=== PATIENT | male | born 1945 | race Caucasian/White ===

== ENCOUNTER 2020-04-16 18:10 | Inpatient (IN) | payer OTHER, BC ==
[~2020-04-16] VITALS: Ht 177.8 cm; Wt 93.9 kg
--- NOTE | ~2020-04-16 | EKG ---
[facility] [place] [address] ELECTROCARDIOGRAM REPORT Name: ROSALES ENRIQUEZ Marc Room #: 201-P ADM IN M.R.#: [id number] Admission: 04/16/20 Attend Phys: Joseluis Riggs Discharge: Date of : 49 Report #: [id number] THIS REPORT FOR: cc: JENNY - [place] family physician/PCP JENNY - No family physician/PCP Mariposa Monge MD ~ THIS REPORT FOR: //name// [facility] Test Date: 2020-04-16 Test Time: 21:54:43 Pat Name: ROSALES ENRIQUEZ Department: Room: Gender: Web Operations Lead: [facility] : 1945 Requested By: Divya Cadet Order Number: [id number] MD: Measurements Intervals [place] Rate: 82 P: -24 RI: 104 QRS: 78 QRSD: 79 T: 263 QT: 382 QTc: 446 Interpretive Statements Sinus rhythm Short RI interval Low voltage, precordial leads Borderline repolarization abnormality Compared to ECG 03/10/1991 11:41:00 Short RI interval now present Low QRS voltage now present Sinus bradycardia no longer present [email or web address] By: 2154 [id number] [place], [place] /EPI
--- NOTE | ~2020-04-16 | HC ---
[facility] [place] [address] CONSULTATION Name: ROSALES ENRIQUEZ Room #: 205-P [facility] IN M.R.#: [id number] Admission: 04/16/20 Attend Phys: Joseluis Riggs Discharge: Date of : 49 Report #: [id number] THIS REPORT FOR: cc: JENNY - No family physician/PCP JENNY - No family physician/PCP Alli Burnham DO ~ CC: [facility] physician/PCP Joseluis Riggs PALLIATIVE CARE CONSULTATION REQUESTING PHYSICIAN: Dr. Lynn. CHIEF COMPLAINT: Acute hypoxic respiratory failure. HISTORY OF PRESENT ILLNESS: The patient is a 75-year-old male who presented after having an NSTEMI. He has subsequently had catheterization with stenting to the proximal LAD and was noted to have acute systolic heart failure. He had extensive disease process ongoing and subsequently required ventilation, post-catheterization. He was extubated and subsequently on nasal cannula, however, has had significant encephalopathy since this time. There has been discussion with regards to long-term prognosis, which appears to be poor. White count requested do not resuscitate and was agreeable to hospice evaluation. Unfortunately, the patient had not prior qualified for inpatient hospice admission. Over the last 24 hours, the patient has received Haldol due to his encephalopathy x 1 IV. In addition, he has had some episodes of tachypnea, which has been noted by nursing staff. On my questioning today, the patient is significantly confused, does not have any kind of ability to recognize what I am saying to him and/or he may be having some difficulty with expression. Essentially, his expression is of nonsensical language at this time. PAST MEDICAL HISTORY: Acute systolic congestive heart failure; coronary artery disease, status post stenting; hypoxic respiratory failure and delirium. PAST SURGICAL HISTORY: Recent heart catheterization with stenting as noted per HPI. SOCIAL HISTORY: I have spoken with the patient's niece today who is a nurse. In addition, the patient's spouse is also responsible for decision making. Case management has been in discussion with her. FAMILY HISTORY: Diabetes and heart disease. CODE STATUS: Currently DNR. ALLERGIES: AMOXICILLIN and CHANTIX. [facility] [address] [place] [address] CONSULTATION Name: ROSALES ENRIQUEZ Room #: 205-P [facility] IN M.R.#: [id number] Admission: 04/16/20 Attend Phys: Joseluis Riggs Discharge: Date of : 49 Report #: [id number] REVIEW OF SYSTEMS: Unable to obtain due to present medical condition. PHYSICAL EXAMINATION: VITAL SIGNS: Today's vitals include temp 36.6, pulse 86, respirations 20, blood pressure 113/59 and 95% on room air. GENERAL: The patient at least is alert to verbal stimuli. He does not appear in significant distress. He has mild distress with some tachypnea. He does appear to have poor attention. HEENT: No scleral icterus. No conjunctival injection. Pupils appear to be equally round. CARDIOVASCULAR: Not currently tachycardic. He has diffuse edema noted. RESPIRATORY: He appears to have diffuse rales. He has some tachypnea on my exam today. ABDOMEN: Nondistended. Diminished bowel sounds are noted. EXTREMITIES: Again, diffusely weak. Diffuse edema noted. PSYCHIATRIC: Unable to assess his mood at this time. His attention level is significantly altered. LABORATORY DATA: These include most recent sodium 150, creatinine 0.8. ASSESSMENT AND PLAN: 1. Acute hypoxic respiratory failure. At this point in time, the patient appears to have pulmonary edema secondary to acute systolic heart failure. This has been discussed with family. They desire hospice care. I have discussed with the [facility] intake at this point in time unless he were to be private pay. We do not feel like they are going to accept him. I did discuss that we could do inpatient palliative type care until such point that he may have further decline or is stable enough for discharge. I would like to stop his antibiotics at this point and start some palliative care medications. If again he has further decline prior to discharge, then we may consider hospice house again; however, if not, we will need further arrangements. We will follow up with family tomorrow. 2. Acute systolic heart failure. Again, this is overall contributing to his decline. I do feel that we should continue diuresis despite his hypernatremia due to his overall condition. 3. Hypernatremia. Again, we will continue diuresis to attempt to reduce his overall suffering. 4. Delirium, again significantly contributing to his overall prognosis. No desire to continue significant treatments, but rather switch to hospice type therapy. Again, thank you very much for the consultation. We will follow up tomorrow. By: [id number] Alli Burnham DO /nt
[2020-04-16 19:30] VITALS: BP 129/73
--- NOTE | 2020-04-16 20:00 | NUR ---
PT CAME FROM [facility] DIRECT ADMIT FOR CHEST PAIN. ORDERES OBTAINED FROM NEREYDA. REMAINS ON HEPARIN DRIP FOR CARDIAC PROTOCAL. WAS ON IT FROM [facility] AND CONTINUED HERE FOR THERAPY. LUNGS ARE CLEAR. ON 2 LITERS O2 NASAL CANULA. RATES PAIN A 1 FEELS PRESSURE IN CHEST. ANXIOUS WTIH HOSPITALIZATION AT THIS TIME. PLAN OF CARE DISCUSSED WITH CHEST PAIN AND INTERVENTIONS AT THIS TIME. CALL LIGHT WITHIN REACH IF NEEDS ASSISTANCE. LABS AND EKG DONE. AND WILL OBTAIN IN AM IN ADDITION TOO
[2020-04-16 20:15] LABS: HEMATOCRIT 45.3 % (42.0-52.0); HEMOGLOBIN 15.6 gm/dL (14.0-18.0); MCH 33.9 pg (26.0-34.0); MCHC 34.5 g/dL (28.0-37.0); MCV 98.1 fL (80.0-100.0); RBC 4.62 mil/uL (4.50-6.00); WBC 11.1 thou/uL (4.0-11.0)
[2020-04-16 20:28] LABS: PROTIME 10.7 Seconds (9.3-11.4)
[2020-04-16 20:34] LABS: CHOLESTEROL 205 mg/dL (<200); HDL CHOLESTEROL 32 mg/dL (>40); LDL CHOLESTEROL 129 mg/dL (<100); TC:HDL 6.4 Ratio (Not establshd); TRIGLYCERIDE 224 mg/dL (<150); VLDL 45 mg/dL (<40)
[2020-04-16] MEDS ORDERED: NEURONTIN 300M300 M2 PO (21:07)
[2020-04-16] MEDS ORDERED: HYDROCHLOROTHIA25 M2 PO (21:09)
[2020-04-16] MEDS ORDERED: METRONIDAZOLE500 M4 PO (21:10)
[2020-04-16] MEDS ORDERED: METFORMIN HCL500 M3 PO (21:12)
[2020-04-16] MEDS ORDERED: TRELEGY ELLIPT1 EACH IH (21:13)
[2020-04-16] MEDS ORDERED: LANTUS SUBQ (21:15)
[2020-04-17] VITALS (36 sets, daily range): BP systolic 86–131; BP diastolic 34–75
--- NOTE | 2020-04-17 03:52 | NUR ---
PT COMPLAINING OF CHEST PAIN AND ANXIOUS. RATES 7 UNCOMFORTABLE. FORMER SMOKER SOB. SITING PT UP IN TRIPOD POSITION FOR BREATHING WITH SMOKING HISTORY. TAKING SHALLOW BREATHS. OXYGEN TURNED UP TO 4LITERS NASAL CANULA. 3 NITRO GIVEN AND A DOSE OF MORPHINE IVP FOR DISCOMFORT AFTER INTERVENTIONS PAIN A 2 NOW HE REPORTS. COVID SWAB DONE AND SENT. PT REPORTS A FAMILY MEMBER HAD COVID 19 BUT HE HASNT BEEN AROUND THEM. INSTRUCTED PT STANDARD TESTING PRIOR TO PROCEDURES. NOTIFIED RT FOR BREATHING TREATMENT AT THIS TIME TO HELP PT. RT AT BEDSIDE TO ASSSIT. CALL LIGHT WITHIN REACH IF NEEDS ASSSITANCE
[2020-04-17 05:46] LABS: HEMATOCRIT 43.7 % (42.0-52.0); HEMOGLOBIN 14.9 gm/dL (14.0-18.0); MCH 34.6 pg (26.0-34.0); MCHC 34.1 g/dL (28.0-37.0); MCV 101.5 fL (80.0-100.0); RBC 4.31 mil/uL (4.50-6.00); WBC 14.3 thou/uL (4.0-11.0)
[2020-04-17 05:59] LABS: CALCIUM 9.2 mg/dL (8.5-10.1); CREATININE 1.1 mg/dL (0.7-1.3); MAGNESIUM 1.5 mg/dL (1.8-2.4); POTASSIUM 3.7 mmol/L (3.5-5.1)
--- NOTE | 2020-04-17 06:40 | NUR ---
SPOKE WITH NEREYDA IN REGARDS TO PT'S INCREASING CHEST PAIN. AND SOB. PT REPORTS HE JUST STOP SMOKING YESTERDAY. 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 STAT CHEST X RAY SOB. SINCE FAMILY MEMBER HE IS QUESTIONING ENHANCE ISOLATION AT THIS TIME. MEDS GIVEN ORDERED PER NEREYDA. AND WILL CONTINUE ONGOING NURSING CARE.
--- NOTE | 2020-04-17 08:02 | NUR ---
RECIEVED REPORT FROM NOC SHIFT RN, UPON INITAL ASSESMENT PT SLIGHTLY CONFUSED. STANDING AT SIDE OF BED, PULLING EKG LEADS AND GOWN OFF. PLACED BACK ON MONITOR AND SETTLED IN BED WITH ALARM ON. IMMEDIATELY AFTER TRAINING LEAD RN AT BEDSIDE TO TAKE PATIENT FOR CARDIDAC CATH. PLAN FOR PATIENT TO TRANSFER TO 3W POST PROCEDURE.
[2020-04-17 10:35] LABS: BE(vivo) -1.4 mmol/L (-2 to +3); HCO3 22.7 mmol/L (22.0-26.0); PCO2 36.7 mmHg (35.0-45.0); PO2 230.9 mmHg (80.0-100.0); pH 7.409 (7.360-7.450); sO2 99.5 % (92.0-98.0)
[2020-04-17 12:44] LABS: BE(vivo) -3.4 mmol/L (-2 to +3); HCO3 20.1 mmol/L (22.0-26.0); PCO2 32.4 mmHg (35.0-45.0); PO2 77.5 mmHg (80.0-100.0); pH 7.411 (7.360-7.450); sO2 95.7 % (92.0-98.0)
--- NOTE | 2020-04-17 14:25 | NUR ---
PT ARRIVED FROM [facility] BULK DRIVER BY RN, RT, AND DR. CABALLERO. PT WAS COMBATIVE AND AGITATED, MULTIPLE MEDS GIVEN FOR SEDATION AND CALMING, SEE MAR. ONCE PT WAS RELAXED, CENTRAL LINE RIGHT IJ WAS PLACED BY IV TEAM. AFTER INSERTION, PT WOULD STOP BREATHING INTERMITTENTLY. DR. CABALLERO PAGED AND NOTIFIED, VOICED HE IS GOING TO INTUBATE. PT INTUBATED WITH NO ISSUES BY DR. CABALLERO AND RTX2. RN WILL CONTINUE TO MONITOR.
--- NOTE | 2020-04-17 17:19 | NUR ---
ASSUMED CARE OF PATIENT AT 1200. PATIENT SEDATED ON VENT. LEVOPHED GTT. INTEGRILIN GTT. IV FLUIDS STARTED PER ORDERS. NOE PATENT. RIGHT GROIN SITE DRESSING C/D/I, AREA SOFT. STENT PLACED TO LAD IN WATER TEAM LEADER. DR. CABALLERO UPDATED ON PATIENT CONDITION AND NEED FOR INTUBATION/LINE PLACEMENT. PATIENT TO REMAIN ON INTREGRLIN GTT UNTIL 3 BOTTLES ARE INFUSED PER CARDIOLOGY. OG TUBE PLACED ORIGINALLY AT 55 CM. ADVANCED TO 70 PER RECOMMENDATIONS BY RADIOLOGIST.
--- NOTE | 2020-04-17 17:24 | NUR ---
VAT CONSULTED FOR A CL THIS AM, 5FRTL PLACED RT IJ WITH THE TIP IN THE DSVC. LOT NUMBER [id number] PLEASE SEE NI FOR DETAILS
[2020-04-18] VITALS (94 sets, daily range): BP systolic 78–139; BP diastolic 23–76
[2020-04-18 03:25] LABS: BE(vivo) -0.5 mmol/L (-2 to +3); HCO3 23.3 mmol/L (22.0-26.0); PCO2 35.8 mmHg (35.0-45.0); PO2 122.5 mmHg (80.0-100.0); pH 7.431 (7.360-7.450); sO2 98.5 % (92.0-98.0)
[2020-04-18 05:52] LABS: GLYCOHEMOGLOBIN (HGB A1C) 7.1 % (4.8-5.6)
[2020-04-18 06:34] LABS: HEMATOCRIT 36.5 % (42.0-52.0); MCH 40.5 pg (26.0-34.0); MCHC 38.3 g/dL (28.0-37.0); MCV 105.6 fL (80.0-100.0); RBC 3.45 mil/uL (4.50-6.00); RDW 13.2 % (10.5-14.5); WBC 15.2 thou/uL (4.0-11.0)
[2020-04-18 06:41] LABS: CALCIUM 7.9 mg/dL (8.5-10.1); CREATININE 1.4 mg/dL (0.7-1.3); POTASSIUM 3.7 mmol/L (3.5-5.1)
--- NOTE | 2020-04-18 07:08 | NUR ---
PT ON PRECEDEX, VERSED AND PROPOFOL FOR SEDATION. TITRATING PROPOFOL DOWN. UNABLE TO TITRATE DOWN SEDATION PT GETS TACHYPNEIC AND COUGHS OVER THE VENT. PT MAX ON LEVOPHED.NO SUCCESS ON TITRATING DOWN THE LEVOPHED PT GETS HYPOTENSIVE. URINE OUTPUT LOW IN COMPARISON TO YESTERDAY. PT HAD A LOW GRADE FEVER OVER NIGHT. REPORT GIVEN TO PRINCE MAURICIO. CONTINUE TO MONITOR.
[2020-04-19] VITALS (70 sets, daily range): BP systolic 83–124; BP diastolic 35–78
[2020-04-19 03:47] LABS: BE(vivo) -2.6 mmol/L (-2 to +3); PCO2 37.5 mmHg (35.0-45.0); pH 7.386 (7.360-7.450); sO2 97.3 % (92.0-98.0)
[2020-04-19 04:56] LABS: HEMOGLOBIN 12.4 gm/dL (14.0-18.0); MCH 43.5 pg (26.0-34.0); MCHC 40.1 g/dL (28.0-37.0); MCV 108.5 fL (80.0-100.0); RBC 2.85 mil/uL (4.50-6.00); RDW 13.4 % (10.5-14.5); WBC 11.8 thou/uL (4.0-11.0)
[2020-04-19 07:16] LABS: ALBUMIN 2.1 g/dL (3.4-5.0); CALCIUM 6.4 mg/dL (8.5-10.1); CREATININE 1.4 mg/dL (0.7-1.3); MAGNESIUM 1.6 mg/dL (1.8-2.4); TOTAL BILIRUBIN 1.2 mg/dL (0.2-1.0); TOTAL PROTEIN 5.3 g/dL (6.4-8.2)
[2020-04-19 07:32] LABS: POTASSIUM 3.7 mmol/L (3.5-5.1)
--- NOTE | 2020-04-19 07:59 | EKG ---
[facility] [place] [address] ELECTROCARDIOGRAM REPORT Name: ROSALES ENRIQUEZ Room #: 236-P ADM IN M.R.#: [id number] Admission: 04/16/20 Attend Phys: Joseluis Riggs Discharge: Date of : 49 Report #: [id number] THIS REPORT FOR: cc: JENNY - [place] family physician/PCP JENNY - No family physician/PCP Fransisco Ferrell MD [facility] THIS REPORT FOR: //name// [facility] Test Date: 2020-04-16 Test Time: 21:54:43 Pat Name: ROSALES ENRIQUEZ Department: Room: [facility] 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: 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1945 Requested By: Camden Hansen Order Number: [id number] MD: Fransisco Ferrell Measurements Intervals [place] Rate: 82 P: -24 SD: 104 QRS: 78 QRSD: 79 T: 263 QT: 382 QTc: 446 Interpretive Statements Sinus rhythm Short SD interval Nonspecific ST and T wave abnormality Compared to ECG 03/10/1991 11:41:[address] and T wave abnormality is now present Sinus bradycardia no longer present Electronically Signed On 04-19-2020 7:59:15 CDT by Fransisco Ferrell [email or web address] <ELECTRONICALLY SIGNED> By: Fransisco Ferrell MD, FACC 04/19/20 0759 [id number] [id number] Fransisco Ferrell MD, FAC /EPI
--- NOTE | 2020-04-19 08:02 | EKG ---
[facility] [place] [address] ELECTROCARDIOGRAM REPORT Name: ROSALES ENRIQUEZ Room #: 236-P ADM IN M.R.#: [id number] Admission: 04/16/20 Attend Phys: Joseluis Riggs Discharge: Date of : 49 Report #: [id number] THIS REPORT FOR: cc: JENNY [place] family physician/PCP JENNY - [place] family physician/PCP Fransisco Ferrell MD [facility] THIS REPORT FOR: //name// 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 : 1945 Requested By: Camden Hansen Order Number: [id number] MD: Fransisco Ferrell Measurements Intervals [place] Rate: 102 P: -13 HI: 105 QRS: 82 QRSD: 84 T: 258 QT: 325 QTc: 424 Interpretive Statements Sinus tachycardia Borderline right axis deviation Nonspecific ST and T wave abnormality Compared to ECG 04/16/2020 21:54:43 No significant change was found Electronically Signed On 04-19-2020 8:01:49 CDT by Fransisco Ferrell [email or web address] <ELECTRONICALLY SIGNED> By: Fransisco Ferrell MD, [facility] 04/19/20800 0 0 Fransisco Ferrell MD, [facility] /EPI
--- NOTE | 2020-04-19 10:11 | NUR ---
chart review. unable to visit with celina rt intubated. boris spoke with kimberly [phone] via phone call. intro to cm, transition of care ie skilled rehab. reported," live at home, from [place]. came in [place] we thought he was having a heart attack and would like to speak with dr or nurse have question what is his dx, why on vent, and what medication is he on? He is independent, has cane if needed. he take hydrocodone at home for lower back pain fx. he manages his own medications, does his on insulin pen. drives vehicle, and pcp is dr dunn in [place]"/ kimberly. boris passed on information for md to reach out to celina sheridan.
[2020-04-20] VITALS (45 sets, daily range): BP systolic 89–119; BP diastolic 45–74
[2020-04-20 05:20] LABS: HEMATOCRIT 33.6 % (42.0-52.0); HEMOGLOBIN 11.8 gm/dL (14.0-18.0); MCH 36.2 pg (26.0-34.0); MCHC 35.1 g/dL (28.0-37.0); RBC 3.27 mil/uL (4.50-6.00); RDW 13.3 % (10.5-14.5); WBC 9.1 thou/uL (4.0-11.0)
[2020-04-20 05:27] LABS: BE(vivo) -4.8 mmol/L (-2 to +3); HCO3 19.1 mmol/L (22.0-26.0); PO2 95.1 mmHg (80.0-100.0); pH 7.394 (7.360-7.450); sO2 97.3 % (92.0-98.0)
[2020-04-20 06:14] LABS: ALBUMIN 2.3 g/dL (3.4-5.0); CALCIUM 7.5 mg/dL (8.5-10.1); CREATININE 1.4 mg/dL (0.7-1.3); PHOSPHORUS 3.6 mg/dL (2.5-4.9); POTASSIUM 4.1 mmol/L (3.5-5.1)
--- NOTE | 2020-04-20 06:50 | NUR ---
Patient being weaned down on Levophed, pressures holding well. When repositioning, patient became tachypneic, but would come out of it. No vent setting changes. Patient being CPAP'd trialed currently. Patient is not progressing toward nursing home goals but is remaining stable. Will continue to monitor.
[2020-04-20 08:02] LABS: BE(vivo) -4.1 mmol/L (-2 to +3); HCO3 19.5 mmol/L (22.0-26.0); PCO2 31.4 mmHg (35.0-45.0); PO2 86.2 mmHg (80.0-100.0); pH 7.411 (7.360-7.450); sO2 96.7 % (92.0-98.0)
--- NOTE | 2020-04-20 08:42 | NUR ---
Pt starting day 3 npo status. If unable to extubate in next 24hr, recommend start enteral nutrition of vital AF 1.2 at goal of 60ml/hr while on propofol
--- NOTE | 2020-04-20 09:56 | 2DMMODE ---
[facility] [place] [address] 2 D/M-MODE ECHOCARDIOGRAM Name: ROSALES ENRIQUEZ Room #: 236-P ADM IN M.R.#: [id number] Admission: 04/16/20 Attend Phys: Joseluis Riggs Discharge: Date of : 49 Report #: [id number] THIS REPORT FOR: cc: FAM - No family physician/PCP FAM - No family physician/PCP Fransisco Ferrell MD [facility] ~ APPROVED REPORT Study performed: 04/20/2020 09:00:17 EXAM: Comprehensive 2D, Doppler, and color-flow Echocardiogram Patient Location: ICU Room #: 236 Status: routine BSA: 2.10 HR: 79 bpm BP: 113/45 mmHg Rhythm: Atrial Flutter Other Information Study Quality: Adequate Indications NSTEMI, PCI. Hx: COPD, HTN, HLP, DM. 2D Dimensions RVDd: 40.55 mm IVSd: 10.97 (7-11mm) LVOT Diam: 22.93 (18-24mm) LVDd: 49.96 mm PWd: 10.72 (7-11mm) Ascending Ao: 32.09 (22-36mm) LVDs: 41.40 (25-40mm) Aortic Root: 42.94 mm Volumes Left Atrial Volume (Systole) Single Plane 4CH: 43.65 mL Single Plane 2CH: 54.97 mL LA ESV Index: 26.00 mL/m2 Aortic Valve AoV Peak Khai.: 0.67 m/s AO Peak Gr.: 1.[address] [facility] [address] [place] [address] 2 D/M-MODE ECHOCARDIOGRAM Name: ZOE,ROSALES Tran Room #: 236-P ADM IN M.R.#: [id number] Admission: 04/16/20 Attend Phys: Joseluis Mary Discharge: Date of : 49 Report #: [id number] MV Decel. Time: 150.40 ms MV E Max Khai.: 0.94 m/s Pulmonary Valve PV Peak Khai.: 0.73 m/s PV Peak Gr.: 2.14 mmHg Tricuspid Valve TR Peak Khai.: 3.43 m/s RAP Estimate: 15.00 mmHg TR Peak Gr.: 47.12 mmHg PA Pressure: 62.00 mmHg Left Ventricle The left ventricle is normal size. There is normal left ventricular wall thickness. Left ventricular systolic function is severely decreased. LVEF is 25%. Extensive anterolateral and septal wall hypokinesis. This study is not technically sufficient to allow evaluation of the LV diastolic function. Right Ventricle The right ventricle is normal size. Right ventricle is hypokinetic. Atria The left atrium size is normal. The right atrium size is normal. Aortic Valve The aortic valve is normal in structure. No aortic regurgitation is present. There is no aortic valvular stenosis. Mitral Valve The mitral valve is normal in structure. Mild mitral regurgitation. Tricuspid Valve The tricuspid valve is normal in structure. Mild to moderate tricuspid regurgitation. Estimated PAP is 55mmHg. Pulmonic Valve Pulmonic valve is not well visualized. Mild pulmonic regurgitation. Great Vessels Aortic root is dilated at 4.3cm. The ascending aorta is normal in size. IVC is dilated and collapses <50% with inspiration. [facility] [address] [place] [address] 2 D/M-MODE ECHOCARDIOGRAM Name: ROSALES ENRIQUEZ Room #: 236-P [facility] IN [facility].#: [id number] Admission: 04/16/20 Attend Phys: Joseluis Mary Discharge: Date of : 49 Report #: [id number] Pericardium There is no pericardial effusion. <Conclusion> Left ventricular systolic function is severely decreased. LVEF is 25%. Extensive anterolateral and septal wall hypokinesis. The aortic valve is normal in structure. No aortic regurgitation or stenosis The mitral valve is normal in structure. Mild mitral regurgitation. Mild to moderate tricuspid regurgitation. Estimated pulmonary artery pressure of 55mmHg. There is no pericardial effusion. <ELECTRONICALLY SIGNED> By: Fransisco Ferrell MD, [facility] 04/20/20 0956 0956 Fransisco Ferrell MD, FACC /INF
--- NOTE | 2020-04-20 16:25 | EKG ---
[facility] [place] [address] ELECTROCARDIOGRAM REPORT Name: ROSALES ENRIQUEZ Room #: 236-P ADM IN M.R.#: [id number] Admission: 04/16/20 Attend Phys: Joseluis Riggs Discharge: Date of : 49 Report #: [id number] THIS REPORT FOR: cc: JENNY - [place] family physician/PCP JENNY - [place] family physician/PCP Fransisco Ferrell MD 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 : 1945 Requested By: Miya Sebastian Order Number: [id number] MD: Fransisco Ferrell Measurements Intervals [place] Rate: 80 P: [place]: QRS: 67 QRSD: 114 T: 236 QT: 456 QTc: 527 Interpretive Statements Atrial flutter with predominant 3:1 AV block Poor R wave progression Nonspecific T wave abnormalities Compared to ECG 04/17/2020 06:01:45 Atrial flutter is new Electronically Signed On 04-20-2020 16:25:11 CDT by Fransisco Ferrell [email or web address] <ELECTRONICALLY SIGNED> By: Fransisco Ferrell MD, [facility] 04/20/20 1625 8 8 Fransisco Ferrell MD, [facility] /EPI
--- NOTE | 2020-04-20 18:14 | NUR ---
1809 pT'S CALLED. INFORMED ABOUT PATIENT'S CONDITION. INFOPRMED ABOUT CPAP TRIAL, BLOOD SUGAR MANAGEMENT AND MEDICATIONS PATIENT IS TAKING. will continue to monitor.
--- NOTE | 2020-04-20 18:42 | NUR ---
0650 CARE ASSUMED. PT IS LAYING IN BED. nO PAIN OR DISCOMFORT NOTED. NO sob. PT CONTINUES ON VENT SETTINGS. [id number] PT PUT ON SEDATION VACATION. BECAME RESTLESS AND TACHYPNEIC. PROPOFOL STARTED. PUPILS EQUAL AND REACTIVE TO LIGHT. [id number] PT PUT ON CPAP SETTINGS. TOLERATED FOR 30 MINUTES. BECAME TACHYPNEIC AND SWITCHED BACK TO PREVIOUS SETTINGS DUE TO INCREASED RESPIRATORY RATE. 1400 PT IS SLEEPING, ON SEDATION. ORAL CARE DONE. PT CONTINUES ON ACVC SETTINGS. NO SOB NOTED. WILL CONTINUE TO MONITOR.
--- NOTE | 2020-04-20 23:44 | NUR ---
PT MOVED TO ROOM 244.
[2020-04-21] VITALS (214 sets, daily range): BP systolic 86–133; BP diastolic 33–67
[2020-04-21 05:15] LABS: BE(vivo) -3.2 mmol/L (-2 to +3); HCO3 20.1 mmol/L (22.0-26.0); PCO2 30.9 mmHg (35.0-45.0); PO2 81.5 mmHg (80.0-100.0); pH 7.432 (7.360-7.450); sO2 96.4 % (92.0-98.0)
[2020-04-21 05:37] LABS: HEMATOCRIT 34.3 % (42.0-52.0); HEMOGLOBIN 11.9 gm/dL (14.0-18.0); MCH 35.2 pg (26.0-34.0); MCHC 34.7 g/dL (28.0-37.0); MCV 101.6 fL (80.0-100.0); RBC 3.37 mil/uL (4.50-6.00); RDW 13.1 % (10.5-14.5); WBC 10.4 thou/uL (4.0-11.0)
[2020-04-21 05:54] LABS: ALBUMIN 2.3 g/dL (3.4-5.0); CALCIUM 7.6 mg/dL (8.5-10.1); CREATININE 1.2 mg/dL (0.7-1.3); MAGNESIUM 2.1 mg/dL (1.8-2.4); POTASSIUM 3.5 mmol/L (3.5-5.1); TOTAL BILIRUBIN 0.6 mg/dL (0.2-1.0); TOTAL PROTEIN 5.8 g/dL (6.4-8.2)
--- NOTE | 2020-04-21 07:41 | NUR ---
CALLED YVON (PT / DPOA) UPDATED HER ON ROOM CHANGE AND PT'S CONDITION, NO EVENTS NOTED OVERNIGHT, REMAINS STABLE AND MODERATELY SEDATED ON PROPOFOL AND PRECEDEX. LEVOPHED IS AT [facility]MCG.
--- NOTE | 2020-04-21 17:18 | CATHLAB ---
[facility] Arash Torrez [place] [address] INVASIVE PROCEDURE REPORT Name: ROSALES ENRIQUEZ Room #: 244-P ADM IN M.R.#: [id number] Admission: 04/16/20 Attend Phys: Joseluis Esteban Adelaida Discharge: Date of : 49 Report #: [id number] THIS REPORT FOR: cc: FAM - No family physician/PCP FAM - No family physician/PCP Camden Hansen MD [facility] ~ APPROVED REPORT Study performed: 04/17/2020 07:04:50 Patient Details The patient is a 75 year-old male Event Personnel Camden Hansen Expressive Therapist, Urbano Andrews RN RN, Gelacio Monroe RTR Richard Joseph Alison RT(R)() Monitor Procedures Performed Art Access - R femoral artery* Left Heart Cath w/or w/o Coronaries 5052963 [facility] KIM Place w/wo Plasty Single LAD 102973 Hemostasis w/ Mynx 64411 Initial Mod Sed Same Phys/QHP Gr5y 952541 59521 Mod Sed Same Phys/QHP Ea 853361 Procedure Narrative The Right Groin^ was infiltrated with 1% Lidocaine subcutaneous anesthesia. A PINNACLE 6FR Sheath #[id number] sheath was inserted into the RFA 6F^. Coronary angiography was performed using coronary diagnostic catheters. The right coronary system was accessed and visualized with a JR4 catheter. The left coronary system was accessed and visualized with a JL4 catheter. The left ventricle was accessed and visualized with a PIGTAIL catheter. The patient tolerated the procedure well and there were no complications associated with the procedure. There was no hematoma. Manual pressure was held due to a MYNXGRIP failure. Intraoperative Conscious Sedation Fentanyl 200 mcg Versed 8 mg Fluoro Time: 24.20 minutes Dose: DAP 11030.30 cGycm2 Contrast Type and Amount: Omnipaque 400 ml Hemodynamics The aortic pressure is 132/56 mmHg with a mean of 61 mmHg. The left [facility] [place] [address] INVASIVE PROCEDURE REPORT Name: ROSALES ENRIQUEZ Room #: 244-P [facility] IN ..#: [id number] Admission: 04/16/20 Attend Phys: Joseluis Mary Discharge: Date of : 49 Report #: [id number] ventricular pressure is 125/18 mmHg with a mean of mmHg. The left ventricular end diastolic pressure is 35 mmHg. PCI Technique Lesion Percutaneous coronary intervention was performed on the proximal left anterior descending artery segment. A LAUNCHER 6FR EBU 3.5 #[id number] Guide Catheter was used to engage the ostium. A Luge Wire .014 x 182CM #[id number] Interventional Guidewire was used to cross the lesion. BALLOON DILATION A Balloon catheter Sprinter OTW 2.25 x 12 #[id number] was inserted and inflated up to 6.00atm for 11seconds. Additional Inflation: 6.00atm for 21seconds. Additional Inflation: 4.00atm for 23seconds. Additional Inflation: 6 mookie for 12 seconds, Additional Inflation: 6 mookie for 18 seconds, Additional Inflation: 10 mookie for 31 seconds, Additional Inflation 18 mookie for 29 seconds, Additional Inflation: 20 mookie for 42 seconds STENT DEPLOYMENT A stent RESOLUTE MELISA OTW 2.75 X 15 #[id number] was inserted and inflated up to 14.00atm for 41seconds. POST STENT DEPLOYMENT BALLOON DILATION A Balloon catheter TREK NC OTW 3.0 X 12 #[id number] was inserted and inflated up to 6.00atm for 20seconds. Additional Inflation: 10.00atm for 14seconds. Additional Inflation: 16.00atm for 22seconds. Conclusion #1. Successful PTCA stent of a 1% occluded LAD of unclear duration possible chronic total a relatively recent in the setting of positive enzymes and chest pain. 2.75 [place] stent postdilated to 3.1 mm ABILIO grade III flow on a moderately diseased distal LAD. #2 left main moderately disease giving rise to LAD and circumflex. The LAD is very proximally occluded. #3 circumflex OM mild disease nondominant. #4 dominant right coronary artery with 30 to 40% proximal and mid distal lesion of 60% giving rise to PDA GE with faint collateral filling of the LAD. #5 extensive anterior apical inferior apical hypokinetic segment EF 25 to 30% on left ventriculogram. Recommendations and plan: This was an extremely difficult case patient became agitated and apneic. Requiring assistance of respiratory therapy and pulmonary. BiPAP initiated. Attempted [facility] [address] [place] [address] INVASIVE PROCEDURE REPORT Name: ROSALES ENRIQUEZ Room #: [facility] IN M.R.#: [id number] Admission: 04/16/20 Attend Phys: Joseluis Esteban Tyra Discharge: Date of : 49 Report #: [id number] sedation but he required four-point restraints to complete this procedure. Hemodynamically improved post procedure. Not clear as the duration of this LAD occlusion with a small bump in enzymes may have been diagonal branch and a total LAD was able to open this with some degree of difficulty and the final result is adequate. Transfer to ICU in guarded condition. With respiratory support. <ELECTRONICALLY SIGNED> By: Camden Hansen MD, FACC 04/21/201716 16 16 Camden Hansen MD, FACC /INF
--- NOTE | 2020-04-21 19:27 | NUR ---
ASSUMED CARE AT 0700. PATIENT SEDATED ON THE VENTILATOR. PROPOFOL @ 20 AND PRECEDEX @ 0.6. LEVOPHED @ 7. NO CPAP TRIAL PERFORMED DUE TO INABILITY TO FOLLOW COMMANDS. AFEBRILE. NO BM.
--- NOTE | 2020-04-21 22:11 | NUR ---
1899-RECEIVED REPORT FROM ROMANA MORRISON AND FLEX MORRISON. ASSUMED PATIENT CARE. 1999-PATIENT HAS FEVER 100.2 F TYLENOL GIVEN PER TUBE. RECHECK WAS 99.8 F STARTED PATIENT ON CONTINOUS TUBE FEED PER ORDER. 2199-PATIENT'S MAP IN THE 50s. INCREASED LEVOPHED GTT FROM 7 TO 10. MAP MAINTAINED GREATER THAN 65.
[2020-04-22] VITALS (184 sets, daily range): BP systolic 80–144; BP diastolic 35–77
[2020-04-22 05:32] LABS: CREATININE 1.2 mg/dL (0.7-1.3); HEMATOCRIT 35.6 % (42.0-52.0); HEMOGLOBIN 12.2 gm/dL (14.0-18.0); MCHC 34.2 g/dL (28.0-37.0); MCV 102.3 fL (80.0-100.0); POTASSIUM 3.7 mmol/L (3.5-5.1); RBC 3.48 mil/uL (4.50-6.00); RDW 13.1 % (10.5-14.5); WBC 10.9 thou/uL (4.0-11.0)
[2020-04-22 06:05] LABS: CALCIUM 8.3 mg/dL (8.5-10.1)
--- NOTE | 2020-04-22 07:33 | EKG ---
[facility] [place] [address] ELECTROCARDIOGRAM REPORT Name: ROSALES ENRIQUEZ Room #: 244-P ADM IN M.R.#: [id number] Admission: 04/16/20 Attend Phys: Joseluis Riggs Discharge: Date of : 49 Report #: [id number] THIS REPORT FOR: cc: JENNY Pike family physician/PCP JENNY Pike family physician/PCP Fransisco Ferrell MD [facility] THIS REPORT FOR: //name// [facility] Test Date: 2020-04-22 Test Time: 07:29:41 Pat Name: ROSALES ENRIQUEZ Department: Room: 244 P Gender: M Rawhide Trimmer: MAGDA : 1945 Requested By: Miya Sebastian Order Number: [id number] MD: Fransisco Ferrell Measurements Intervals [place] Rate: 73 P: -59 OR: 110 QRS: 80 QRSD: 92 T: 116 QT: 445 QTc: 491 Interpretive Statements Sinus rhythm Atrial premature complex Borderline short OR interval Poor R wave progression Nonspecific T wave abnormality Compared to ECG 04/20/2020 08:19:17 Sinus rhythm has replaced atrial flutter Electronically Signed On 04-22-2020 7:33:00 CDT by Fransisco Ferrell [email or web address] <ELECTRONICALLY SIGNED> By: Fransisco Ferrell MD, [facility] 04/22/2033 8 8 Fransisco Ferrell MD, FAC /EPI
--- NOTE | 2020-04-22 18:26 | NUR ---
ASSUMED CARE @ 0700 04/22/20, PT ASSESSMENTS AND VSS COMPLETE PER ICU PROTOCOL. PT INITIALLY ON PRECEDEX AND PROPOFOL, SEDATION VACATION PERFORMED @ 0715 , PT OPENING EYES BUT NOT FOLLOWING COMMANDS, SEDATION TURNED BACK ON @ 0745 . PROPOFOL TURNED OFF FOR CPAP @ 1050, PT NOT FOLLOWING COMMANDS INITIALLY BUT STARTS TO FOLLOW COMMANDS @ 1305. 1400 RR IN 30-40, PT SWITCHED TO A/C, SEDATION TURNED BACK ON. WILL CONT TO MONITOR.
[2020-04-23] VITALS (100 sets, daily range): BP systolic 83–132; BP diastolic 35–73
[2020-04-23 05:09] LABS: CALCIUM 8.5 mg/dL (8.5-10.1); CREATININE 0.9 mg/dL (0.7-1.3); POTASSIUM 3.7 mmol/L (3.5-5.1)
--- NOTE | 2020-04-23 06:32 | NUR ---
Patient remains on the vent. On propofol, precedex, Levo gtt. Foleey in place with good u/o. No BM this TOD. Repositioned q2h. Afebrile. VSS. Will keep monitoring and give report to oncoming RN
--- NOTE | 2020-04-23 14:00 | NUR ---
ON-GOING ASSESSMENT: CM REVIEWED CHART. PT REMAINS SEDATED ON THE VENT. PT IS NOT READY FOR WEANING TRIALS PER PULM DUE TO TACHYPNEA AND ENCEPHALOPATHY. CM WILL CONTINUE TO FOLLOW TO ASSIT NEEDED.
--- NOTE | 2020-04-23 19:06 | NUR ---
PT REMAINS INTUBATED ON PROPOFOL, PRECEDEX AND LEVO FOR BP MANAGEMENT. ATTEMPTED TO WEAN PROPOFOL HOWEVER PATIENT DID NOT TOLERATE LOWER RATES. REMAINS ON MINIMAL VENT SETTINGS, INCR ORAL AND ETT SECRETIONS. CALLED AND UPDATED ON STATUS AND POC.
[2020-04-24] VITALS (84 sets, daily range): BP systolic 87–142; BP diastolic 41–68
--- NOTE | 2020-04-24 03:39 | NUR ---
REMAINS ON THE VENT. PROPOFOL, PRECEDEX, LEVO GTT. AFEBRILE. VSS. NOE IN PLACE WITH GOOD U/O. NOE CARE PROVIDED. TOLERATING TUBE FEEDS WELL. REPOSITIONED Q2H. WILL KEEP MONITORING.
[2020-04-24 05:31] LABS: CALCIUM 8.9 mg/dL (8.5-10.1); CREATININE 0.8 mg/dL (0.7-1.3); POTASSIUM 3.9 mmol/L (3.5-5.1)
--- NOTE | 2020-04-24 12:20 | NUR ---
THIS DIRECTOR OF INDIVIDUAL GIVING WAS PAGED AND NOTIFIED THAT THE PATIENTS FAMILY WISHED FOR HIM TO BE ANOINTED. THIS DIRECTOR OF INDIVIDUAL GIVING SPOKE TO THE PATIENT'S , YVON, AT APPROXIMATELY 1220 HOURS TODAY. I EXPLAINED THAT HER RECEIVED THE HEALING SACRAMENT ON 2019 BY OUR SELF SEALING FUEL TANK REPAIRER. HE WAS VISITED BY OUR SELF SEALING FUEL TANK REPAIRER ALSO ON . WE DISCUSSED HIS END OF LIFE ARRANGEMENTS. WE CONCLUDED IN PRAYER. HOIME WILL BE: [facility] [address] [place] [address]. THEIR TELEPHONE NUMBER IS [phone]. MRS. ENRIQUEZ IS GOING TOALERT THEM THAT HER WILL BE PASSING PROBABLY TODAY. tHEY WILL BE NOTIFIED BY OUR SECURTIY STAFF WHEN THE BODY CAN BE PICKED UP BY THE HOME. THEIR SON, KALIA ENRIQUEZ, WILL COME TO OUR SECURITY OFFICE TO DIGITAL PRODUCER THE PATIENT'S PERSONAL AFFECTS, SINCE HE LIVE CLOSE TO THE HOSPITAL
--- NOTE | 2020-04-24 16:40 | NUR ---
ASSESSMENT CHARTED - MEDS PER RAMIRO - REMAINS ON SEDATING MEDICATIONS AND LEVO FOR BP CONTROL. JAZ TUBE FEEDING/ FLUSHES ORDERED. RESTRAINTS BILAT - DOCUMENTED. R [facility] SITE CC/D/I. ACCUCHECK COVERED PER SSI. DR TERRY SPOKE WITH THIS AM - i SPOKE WITH AND SHE STATED THAT SHE WAS TOLD THAT SHE NEEDED TO MAKE A DECISION IN REGARDS TO CARE. DR TERRY TO CALL THIS AFTERNOON AND SHE IF SHE HAS DECIDED TO WITHDRAW CARE. CONSULT CALLED TO DR TORO - IN TO SEE PATIENT ADN INFORMED HIM THAT CARE MAY BE WITHDRAWN - HE STATED TO CALL AND LET HIM KNOW WHAT DECISION WAS MAD. NOTIFED THE CAROLE THAT WISHED TO HAVE LAST RIGHTS GIVEN TO PATIENT - SEE CHAPLIIN NOTE. PT TURNED MOUTH CARE GIVEN - APPEARS TO BE RESTING COMFORTABLY AT THE PRESENT TIME.
--- NOTE | 2020-04-24 19:46 | NUR ---
1899-RECEIVED REPORT FROM MARA MORRISON. ASSUMED PATIENT CARE AT THIS TIME. 1924-NOTED UPON ASSESSMENT THAT OG TUBE NOT IN ORIGINAL PLACEMENT. CURRENTLY SITTING AT 55 CM. STOPPED CONTINUOUS TUBE FEEDING AT THIS TIME. ADVANCED OG TUBE TO ORIGINAL PLACEMENT OF 66 CM AT LIP. SECURED TUBE. PERFORMED ORAL CARE. REPLACED FILTER PIECE ON VENT TUBING DUE TO LARGE SPUTUM PRESENT. SUCTIONED LARGE AMOUNT OF ORAL SECRETIONS AND INLINE SECRETIONS. INLINE SECRETIONS WERE THICK AND WILKES/BLOOD TINGED. REPOSITIONED PATIENT FROM LEFT LYING POSITION TO SUPINE POSITION. 1939-ATTEMPTED TO CONTACT SANTINO ESCUDERO REGARDING NEW PATIENT FINDINGS. DID NOT ANSWER. WILL CALL BACK. 1954-NOTIFIED SANTINO ESCUDERO OF ASSESSMENT FINDINGS AND RECEIVED ORDER FOR CXR TO CONFIRM PLACEMENT OF OG TUBE PRIOR TO RESTARTING CONTINUOUS TUBE FEEDINGS.
[2020-04-25] VITALS (64 sets, daily range): BP systolic 93–156; BP diastolic 34–70
[2020-04-25 04:35] LABS: CALCIUM 9.1 mg/dL (8.5-10.1); CREATININE 0.9 mg/dL (0.7-1.3); POTASSIUM 3.9 mmol/L (3.5-5.1)
[2020-04-25 04:40] LABS: HEMATOCRIT 37.5 % (42.0-52.0); HEMOGLOBIN 12.5 gm/dL (14.0-18.0); MCH 33.5 pg (26.0-34.0); MCHC 33.4 g/dL (28.0-37.0); MCV 100.1 fL (80.0-100.0); RBC 3.74 mil/uL (4.50-6.00); RDW 13.1 % (10.5-14.5)
[2020-04-25 08:18] LABS: PCO2 41.6 mmHg (35.0-45.0); PO2 85.4 mmHg (80.0-100.0); sO2 97.1 % (92.0-98.0)
--- NOTE | 2020-04-25 08:27 | NUR ---
PT PROPOFOL TURNED OFF EARLIER, SEE CHARTING. PT ABLE TO SQUEEZE WITH RIGHT HAND, TRIED WITH LEFT BUT IS VERY WEAK. CAN WIGGLE BILATERAL TOES. FOLLOWS WITH EYES. REMAINING CALM ON PRECEDEX GTT. BP 115/51, HR 75, RR 19, SPO2 98%.
--- NOTE | 2020-04-25 10:07 | NUR ---
1004- NURSE TALKED WITH PATIENTS POST HER CALL. SHE EXPRESSED THEIR WISHES TO WITHDRAWAL CARE TO PALLIATIVE. SHE EXPRESSED HER WISHES TO HAVE THEIR SON, KALIA ENRIQUEZ, TO COME BE PRESENT DURING EXTUBATION. NURSE TO RETURN HER CALL AFTER APPROVAL FOR SON TO COME VISIT.
--- NOTE | 2020-04-25 10:20 | NUR ---
PT DOING VERY WELL ON TRIAL, VSS, STAYING CALM, BLOOD GAS WNL, NIF AND VC WNL. SPOKE WITH DR PILLAI, ORDER TO EXTUBATE RECEIVED. CALLED AND UPDATED HER. SHE STATES SHE WILL BE HERE LATER AND TO GO AHEAD AND EXTUBATE. LEVOPHED IS OFF, PRECEDEX STILL. TUBE FEED OFF. RT CALLED.
--- NOTE | 2020-04-25 10:39 | NUR ---
PT EXTUBATED AT 1030. PT TOLERATED WELL. VSS. PT ON 50% FACE SHIELD.
--- NOTE | 2020-04-25 19:31 | NUR ---
190-RECEIVED PATIENT REPORT FROM LETICIA MORRISON. ASSUMED PATIENT CARE AT THIS TIME. 1909-CALLED PATIENT'S YVON AND ASSISTED PATIENT TO TALK TO HIS ON THE PHONE. 1924-CALLED PATIENT'S DAUGHTER FELICITAS AND ASSISTED PATIENT TO TALK TO HIS DAUGHTER ON THE PHONE. 1932-PATIENT STATED THAT HE IS DONE TALKING ON PHONE. PATIENT STATED TO NURSE THAT HE WANTS TO GET OUT OF HERE. PATIENT RESTLESS AND CONFUSED. PROVIDED REASSURANCE TO PATIENT.
[2020-04-26] VITALS (23 sets, daily range): BP systolic 121–154; BP diastolic 50–88
--- NOTE | 2020-04-26 10:30 | NUR ---
Bedside swallow evaluation done. Pt given, applesauce, pudding, jaskaran cracker, thickened water and regular water. Pills placed in applesauce. Pt placed in upright position and dentures placed in mouth. No apparent diffiulty with swallowing. Will order diet per Dr Neumann's ordersy
[2020-04-26 11:16] LABS: HEMATOCRIT 36.9 % (42.0-52.0); HEMOGLOBIN 12.5 gm/dL (14.0-18.0); MCH 33.9 pg (26.0-34.0); MCHC 33.8 g/dL (28.0-37.0); MCV 100.2 fL (80.0-100.0); PLATELET COUNT 234 thou/uL (150-400); RBC 3.68 mil/uL (4.50-6.00); WBC 9.2 thou/uL (4.0-11.0)
[2020-04-26 11:32] LABS: ALBUMIN 2.4 g/dL (3.4-5.0); CALCIUM 8.3 mg/dL (8.5-10.1); CREATININE 0.7 mg/dL (0.7-1.3); POTASSIUM 3.9 mmol/L (3.5-5.1); TOTAL BILIRUBIN 0.7 mg/dL (0.2-1.0); TOTAL PROTEIN 6.2 g/dL (6.4-8.2)
--- NOTE | 2020-04-26 11:38 | NUR ---
Report called to Shawn, receiving nurse on . Blood drawn and sent to the lab for lab work. All ports of triple lumen draw blood and flush wtihout difficulty.
--- NOTE | 2020-04-26 12:20 | NUR ---
Pt transferred to 205 via bed. Receiving nurse, Shawn, present on arrival to the room. Personl belongings including duffle bag transferred with patinet to new room. Pt has dentures in place. Lunch tray sent with the patient.
[2020-04-26 13:59] LABS: ABSOLUTE NEUTROPHILS 6.4 thou/uL (1.4-8.2); METAMYELOCYTES 1 %
--- NOTE | 2020-04-26 18:22 | NUR ---
PT CARE ASSUMED AT 1200. ASSESSMENTS CHARTED. MEDICATION CHARTED. RIJ 3 LUMEN. NOE. PT IS A FEEDER. GENERALIZED WEAKNESS; MAX ASSIST. ACHS - HIGH DOSE. O2 5 LPM NC. AO X 2; SELF AND PLACE. VSS.
[2020-04-27] VITALS: BP 148/87
--- NOTE | 2020-04-27 03:19 | NUR ---
ASSUMED CARE 1900. PT HAD BEEN TRANSFERRED FROM ICU. AOX2. DENIES CHEST PAIN. PT HAS GENERALIZED WEAKNESS AND ALSO WAS NOTED TO HAVE SLURRED SPEEECH. THIS Sx HAD BEEN NOTICED BY THE DAY RN WELL. PT HAS NO HX OF STROKE. AUDIO VISUAL TECHNICIAN NOTIFIED. START HEAD CT COMPLETED. NO ACUTE INTRACRANIAL HEMORRHAGE. PT CURRENTLY IN BED. ABLE TO FOLLOW COMMANDS BETTER. DENIES NUMBNESS OR LOSS OR SENSATION. WILL CONRINUE TO MONITOR AND FOLLOW POC
[2020-04-27 03:30] VITALS: BP 139/90
[2020-04-27 09:00] VITALS: BP 136/87
--- NOTE | 2020-04-27 12:33 | NUR ---
ASSUMED CARE AT SHIFT CHANGE. PT A/O X 1- KEEPS ASKING FOR HIS DOGS. ASSESSMENTS PER CHART, THERAPIES ORDERED FOR TODAY, PT VERY WEAK BILATERALLY. NO DISTRESS NOTED. REPORT GIVEN TO PRINCE FRASER AT THIS TIME MY ASSIGNMENT HAS CHANGED.
[2020-04-27 15:46] VITALS: BP 138/78
--- NOTE | 2020-04-27 15:49 | NUR ---
ASSESSMENT: CM REVIEWED CHART. PT WAS EXTUBATED ON 04/25 AND ABLE TO MOVE OUT OF THE ICU. PT/OT WAS ORDERED FOR PATIENT TODAY AND RECOMMENDING POST ACUTE CARE. CM MET WITH PT BUT HE REMAINS PLEASANTLY CONFUSED. CM REACHED OUT AND LEFT YVON Palacios TO DISCUSS SNF AND SNF OPTIONS. CM LEFT SNF LIST AT THE BEDSIDE AND CONTACT FOR CM. CM WILL CONTINUE TO FOLLOW TO ASSIST NEEDED. PT IS FROM [place] SO UNCLEAR IF WILL WANT PATIENT TO GO TO SNF CLOSER TO HOME. PT STATING HE DOES NOT THINK HE HAS BEEN TO A SNF BEFORE. CM AWAITING FURTHER INPUT FROM PTS AT THIS TIME.
[2020-04-27 20:17] VITALS: BP 127/79; BP 145/57
[2020-04-28 04:46] VITALS: BP 130/90
--- NOTE | 2020-04-28 05:22 | NUR ---
ASSESSMENT DOCUMENTED.PT ALERT TO SELF,FOLLOWS SIMPLE COMMANDS.VSS.AFIB/TACHY ON MONITOR.ON O2 AT 3.5 LITERS PNC.NO RESP DISTRESS NOTED.NEB TX PER RT.MAX ASSIST WITH ADLS.Q2H TURNS.HASMUKH DD.NO S/SX OF PAIN NOTED.POC IS TO CONT WITH PT/OT/ST AND TREATMENT.WILL CONT TO MONITOR PER POC.
[2020-04-28 07:54] VITALS: BP 125/70
[2020-04-28 11:39] VITALS: BP 129/66
--- NOTE | 2020-04-28 14:18 | NUR ---
Spoke with today. 5N in process of eval. reports she wants patient DNR. She is tearful and reports she just wants to honor his wishes. She wants referral to [facility]. She has family that works at facility. [facility]. referral sent for review.
--- NOTE | 2020-04-28 15:29 | NUR ---
[facility] RECEIVED CONFIRMATION AND LEFT MSG WITH TOMI IN ADM. DP TO FOLLOW.
[2020-04-28 15:56] VITALS: BP 128/66
--- NOTE | 2020-04-28 17:41 | NUR ---
ASSESSMENT CHARTED - MEDS PER MAR - EATING ONLY SMALL AMOUNTS OF DIET FOR LUNCH AND DINNER ATE WELL FOR BREAKFAST. ACCUCHECKS CHARTED - LOW AT DINNER GIVEN JUICE, UP TO 98 ATE PUDDING FROM TRAY. SSEEN BY PT/ SPECH AND OCC THERAPY TODAY. REMAINS CONFUSED - INTO VISIT THIS SHIFT. SPOKE WITH SWS THIS AFTERNOON. PT WITH NO CO'S AT THE PRESENT TIME.
[2020-04-28 20:00] VITALS: BP 135/70
[2020-04-29 03:40] VITALS: BP 146/58
--- NOTE | 2020-04-29 03:42 | NUR ---
Assumed pt care at 1900. Pt is alert but confused. Pt is laying in bed, resting comfortably. No sign of distress noted. Fall precaution in place. Assessment completed and documented. Scheduled meds administered to pt. Tolerated PO intake. No acute events overnight. Continue to monitor pt. No furthe needs at this time
[2020-04-29 07:45] VITALS: BP 127/53
[2020-04-29 08:07] LABS: HEMATOCRIT 38.1 % (42.0-52.0); HEMOGLOBIN 13.2 gm/dL (14.0-18.0); MCH 34.9 pg (26.0-34.0); MCHC 34.6 g/dL (28.0-37.0); MCV 100.9 fL (80.0-100.0); RBC 3.78 mil/uL (4.50-6.00); RDW 13.3 % (10.5-14.5); WBC 12.5 thou/uL (4.0-11.0)
[2020-04-29 08:24] LABS: ALBUMIN 2.5 g/dL (3.4-5.0); CALCIUM 8.7 mg/dL (8.5-10.1); CREATININE 0.9 mg/dL (0.7-1.3); MAGNESIUM 2.4 mg/dL (1.8-2.4); POTASSIUM 3.9 mmol/L (3.5-5.1); TOTAL BILIRUBIN 0.8 mg/dL (0.2-1.0); TOTAL PROTEIN 6.9 g/dL (6.4-8.2)
--- NOTE | 2020-04-29 13:20 | NUR ---
FAXED TODAY'S PT/PROGRESS NOTES TO [facility] TO SUBMIT FOR AUTH RECEIVED CONFIRMATION AND LEFT MSG WITH TOMI IN ADM.
--- NOTE | 2020-04-29 15:46 | NUR ---
FAXED CLINICAL UPDATE PT/OT NOTES AND PROG. NOTES TO [facility] SPOKE WITH TOMI IN ADM SHE RECEIVED AND STILL REVIEWING. DP TO FOLLOW.
--- NOTE | 2020-04-29 16:47 | NUR ---
[facility] cont to want updated therapy notes plan to fax notes in am. Updated . do not need new covid for discharge.
--- NOTE | 2020-04-29 16:55 | NUR ---
ASSESSMENT CHARTED - MEDS PER OCT - NO CO'S OF PAIN OR NASUEA. JAZ ONLY SMALL AMOUNT OF DIET - NEED TO ENCOURAGE PATIENT TO DRINK MORE. PT SEEN BY PHYS THERAPY TODAY AND SAT ON THE COMMODE ACCORDING TO . SEEN BY OCC THERAPY. PT MORE ALERT TODAY - REMAINS CONFUSED BUT IS ENGAGING MORE WITH STAFF AND . ACCUCHECKS CHARTED - INSULIN HELD AT 1200 DUE TO LOW GLUCOSE YESTERDAY PRIOR TO DINNER PATIENT DID NOT EAT VERY MUCH AT LUNCH. DID NOT EAT WELL AGAIN TODAY. PATIENT TURNED IN BED - SKIN REMIANS WITH BRUISING PRESENT. APPEARS TO BE RESTING COMFORTABLY. NO CO'S AT THE PRESENT TIME.
[2020-04-29 20:00] VITALS: BP 121/49
[2020-04-30 04:00] VITALS: BP 121/60
--- NOTE | 2020-04-30 05:52 | NUR ---
Assumed pt care at 1900. Pt is alert but confused. No sign of distress noted in. Pt is alert to self only. Pt is stable. Fall precaution in place. Assessment completed and documented. Scheduled meds administered pt. Tolerated PO intake. No acute events overnight. Continue to monitor pt.No further needs this time.
[2020-04-30 06:36] LABS: ABSOLUTE NEUTROPHILS 10.1 thou/uL (1.4-8.2); BASOPHILS 1.1 % (0.0-2.0); EOSINOPHILS 1.5 % (0.0-3.0); HEMATOCRIT 38.6 % (42.0-52.0); HEMOGLOBIN 12.8 gm/dL (14.0-18.0); LYMPHOCYTES 16.1 % (24.0-44.0); MCH 33.3 pg (26.0-34.0); MCHC 33.2 g/dL (28.0-37.0); MCV 100.2 fL (80.0-100.0); MONOCYTES 7.5 % (1.0-8.0); PLATELET COUNT 293 thou/uL (150-400); POLYS 73.8 % (36.0-66.0); RBC 3.85 mil/uL (4.50-6.00); RDW 13.3 % (10.5-14.5); WBC 13.6 thou/uL (4.0-11.0)
[2020-04-30 06:46] LABS: ALBUMIN 2.6 g/dL (3.4-5.0); CALCIUM 8.5 mg/dL (8.5-10.1); CREATININE 0.8 mg/dL (0.7-1.3); MAGNESIUM 2.2 mg/dL (1.8-2.4); POTASSIUM 3.5 mmol/L (3.5-5.1); TOTAL BILIRUBIN 0.7 mg/dL (0.2-1.0); TOTAL PROTEIN 6.8 g/dL (6.4-8.2)
[2020-04-30 08:07] VITALS: BP 116/67
[2020-04-30 12:00] VITALS: BP 114/70
[2020-04-30 16:04] VITALS: BP 111/60
--- NOTE | 2020-04-30 16:50 | NUR ---
PT CARE ASSUMED APPROX 0700. ASSESSMENTS CHARTED. PT DENIES PAIN AND SOA. VSS. TURNING Q2HRS AND PRN. TOLERATING POC. NO DISTRESS NOTED.
[2020-04-30 20:00] VITALS: BP 114/74
[2020-05-01 01:13] LABS: URINE BILIRUBIN NEGATIVE (Negative); URINE BLOOD NEGATIVE (Negative); URINE CLARITY CLEAR; URINE COLOR YELLOW; URINE GLUCOSE-RANDOM* NEGATIVE (Negative); URINE KETONES NEGATIVE (Negative); URINE LEUKOCYTES NEGATIVE (Negative); URINE NITRITE NEGATIVE (Negative); URINE PROTEIN (DIPSTICK) TRACE (Negative)
[2020-05-01 03:50] VITALS: BP 119/66
--- NOTE | 2020-05-01 04:13 | NUR ---
Assumed pt care at 1900. Pt is alert and confused. Oriented to self. No sign of distress noted. Pt is laying in bed. Fall precaution in place. Assessment completed and documented. Scheduled meds administered to pt. Tolerated PO intake. Continue to monitor patient. No acute events overnight. Continue to monitor. Waiting on placement. No further needs at this time.
[2020-05-01 07:40] VITALS: BP 126/79
[2020-05-01 11:00] LABS: ABSOLUTE NEUTROPHILS 9.8 thou/uL (1.4-8.2); BASOPHILS 0.6 % (0.0-2.0); EOSINOPHILS 1.3 % (0.0-3.0); HEMATOCRIT 37.7 % (42.0-52.0); HEMOGLOBIN 12.3 gm/dL (14.0-18.0); LYMPHOCYTES 15.4 % (24.0-44.0); MCHC 32.5 g/dL (28.0-37.0); MCV 101.3 fL (80.0-100.0); MONOCYTES 6.8 % (1.0-8.0); POLYS 75.9 % (36.0-66.0); RBC 3.72 mil/uL (4.50-6.00); RDW 13.2 % (10.5-14.5); WBC 12.9 thou/uL (4.0-11.0)
[2020-05-01 11:19] LABS: ALBUMIN 2.7 g/dL (3.4-5.0); CALCIUM 8.5 mg/dL (8.5-10.1); CREATININE 0.8 mg/dL (0.7-1.3); MAGNESIUM 2.1 mg/dL (1.8-2.4); TOTAL BILIRUBIN 0.7 mg/dL (0.2-1.0); TOTAL PROTEIN 6.2 g/dL (6.4-8.2)
[2020-05-01 12:00] VITALS: BP 103/66
[2020-05-01 12:31] LABS: LARGE PLATELETS OCCASIONAL; PLATELET COUNT 278 thou/uL (150-400)
[2020-05-01 17:37] LABS: CALCIUM 8.9 mg/dL (8.5-10.1); CREATININE 0.8 mg/dL (0.7-1.3); POTASSIUM 3.4 mmol/L (3.5-5.1)
--- NOTE | 2020-05-01 20:00 | NUR ---
ASSESSMENT DOCUMENTED. VSS. PT HYPOGLYCEMIC WITH BS OF 49. TREATED WITH JUICE AND D50 IVP PER EMAR. PT CONFUSED. ALERT TO SELF. PT APPEARS TO BE HALLUCINATING AT TIMES. SMALL BM TODAY. SUPPOSITORY ADMINISTERED PER EMAR. SR/ST ON THE MONITOR WITH NO PAIN/CP REPORTED BY THE PT. PT RESTING IN BED WITH CALL LIGHT IN REACH. WILL CONTINUE TO MONITOR.
[2020-05-01 21:45] VITALS: BP 107/86
--- NOTE | 2020-05-02 02:45 | NUR ---
PATIENT ALERT AND ORIENTED X1. HE GETS RESTLESS AND REMOVES GOWN AND TELE AT TIMES. CRUSHING MEDS AND MIXING WITH APPLESAUCE WHICH HE TAKES W/O COMPLICATION. BS AC/HS MONITORED. NOE TO D/D. RESTLESS AND GIVEN HALDOL AND VICODEN WITH NOT MUCH DIFFERENCE IN ACTIONS. GOOD RESULTS FROM SUPPOSITORY GIVEN ON AM SHIFT. WILL MONITOR.
[2020-05-02 04:45] VITALS: BP 132/66
[2020-05-02 07:25] VITALS: BP 125/62
[2020-05-02 07:30] VITALS: BP 119/62
[2020-05-02 11:25] VITALS: BP 118/83
--- NOTE | 2020-05-02 12:02 | NUR ---
VASCULAR ACCESS NURSE ROUNDING. THIS PATIENT HAS A CENTRAL LINE WITH A DWELL OF 15 DAYS. SUGGEST REMOVAL IF APPROPRITE AND PERIPHERAL IV PLACEMENT FOR THE 1 CURRENT IV ANTIBIOTIC TO DECREASE INFECTION RISK
[2020-05-02 14:13] LABS: HEMOGLOBIN 10.4 gm/dL (14.0-18.0); MCH 33.3 pg (26.0-34.0); MCHC 32.6 g/dL (28.0-37.0); MCV 102.3 fL (80.0-100.0); RBC 3.13 mil/uL (4.50-6.00); RDW 13.6 % (10.5-14.5); WBC 12.3 thou/uL (4.0-11.0)
[2020-05-02 14:35] LABS: CALCIUM 7.5 mg/dL (8.5-10.1); CREATININE 0.9 mg/dL (0.7-1.3)
[2020-05-02 14:38] LABS: POTASSIUM 2.8 mmol/L (3.5-5.1)
[2020-05-02 15:44] LABS: CALCIUM 7.7 mg/dL (8.5-10.1); CREATININE 0.9 mg/dL (0.7-1.3); POTASSIUM 3.1 mmol/L (3.5-5.1)
[2020-05-02 16:25] VITALS: BP 97/58
--- NOTE | 2020-05-02 19:42 | NUR ---
ASSUMED CARE OF PT AT SHIFT CHANGE. ASSESSMENTS CHARTED. MEDS GIVEN PER OCT. PT NOT ALERT OR ORIENTED. CONFUSED, SPEAKING INCOHERENTLY MOST OF THE TIME. TAKES OFF GOWN, TELE LEADS, OXYGEN FREQUENTLY. ATTEMPTS TO GET OUT OF BED. HAS REFUSED ALL MEALS, BUT DID DRINK 1/2 OF THE SUPPLEMENT SHAKE AT BREAKFAST AND DINNER. WILL CONTINUE TO MONITOR AND FOLLOW POC.
[2020-05-02 20:18] VITALS: BP 104/61
--- NOTE | 2020-05-03 03:09 | NUR ---
ASSESSMENTS CHARTED, MEDS CHARTED GIVEN. RESTING IN BED DURING SHIFT. BOWEL MOVEMENT AT START OF SHIFT. WEAK TO FAIR COUGH EFFORT. MEDS CRUSHED IN APPLESAUCE. PLAN OF CARE IS FOR PATIENT TO TRANSFER TO [facility] IN THE AM. FALL PRECAUTIONS IN PLACE DURNG SHIFT.
[2020-05-03 05:07] VITALS: BP 120/87
[2020-05-03 05:15] LABS: HEMATOCRIT 35.7 % (42.0-52.0); HEMOGLOBIN 11.8 gm/dL (14.0-18.0); MCH 33.3 pg (26.0-34.0); MCHC 33.2 g/dL (28.0-37.0); MCV 100.4 fL (80.0-100.0); RBC 3.56 mil/uL (4.50-6.00); RDW 13.1 % (10.5-14.5); WBC 14.4 thou/uL (4.0-11.0)
[2020-05-03 05:33] LABS: CALCIUM 8.2 mg/dL (8.5-10.1); CREATININE 0.9 mg/dL (0.7-1.3); MAGNESIUM 2.2 mg/dL (1.8-2.4); POTASSIUM 3.7 mmol/L (3.5-5.1)
[2020-05-03 08:07] VITALS: BP 116/67
--- NOTE | 2020-05-03 10:36 | NUR ---
WOUND CONSULT; THE BILATERAL BUTTOCKS WERE ASSESSED. SMALL AREAS CONSISTANT WITH DTI VS FRICTION AREAS OF INJURY. NO DRAINAGE WITH BRUSING. THE PATIENT IS INCONTINENT OF STOOL. NO S/S OF AN ACUTE INFECTION. RECOMMENDATIONS; 1-ZGUARD BID. 2-TURN Q2H AT A MINIMUM. 3-ADD A LOW AIR LOSS BED PUMP DISCUSSED WITH RN
[2020-05-03 14:00] VITALS: BP 124/51
[2020-05-03 15:30] VITALS: BP 102/78
--- NOTE | 2020-05-03 16:25 | NUR ---
Met with this am with Dr Neumann. reports over the weekend she sp with Dr Martinez. "He would not want to be this way." She has been speaking with phys regarding hospice. reports family does not want ltc they are intersted in [facility]. Reviewed locations of hospice house and with interest in [facility] and [facility]. Both evaled and report not appropriate at this time for Hospice House. Can reeval in next 24/48 hours. Patient appropriate for hospice but family does not want ltc with hospice. Sp with elijah Narayan who reports family supportive but they work and cannot assist with 24/7 care in home. Hospice sp with .
--- NOTE | 2020-05-03 19:32 | NUR ---
ASSUMED CARE AT CHANGE OF SHIFT. AWAKE, WILL FOLLOW COMMANDS, CONFUSED, AGITATED. REMOVED GOWN AND TELE MONITOR. TREATED WITH HALDOL THAT DID NOT RESOLVE. PAIN MANAGED WITH MEDS. DEPENDED WITH CARES. FAMILY REQUEST FOR HOSPICE PT DID NOT MEET REQUIREMENT FOR HOSPICE HOUSE. CM VOICED [facility] MAY BE CONSULTED. FALL PRECAUTIONS IN PLACE. PT UNABLE TO DEMONSTRATE CALL LIGHT. STAFF TO ANTICIPATE NEEDS.
[2020-05-03 20:47] VITALS: BP 112/46
--- NOTE | 2020-05-04 04:34 | NUR ---
Assumed pt care at 1900. Pt is alert and confused. Pt is oriented to self only. Pt is laying in bed. Fall precaution in place. Pt follows command. Assessment completed and documented. Scheduled meds administered to pt. Pt tolerated PO intake. No acute events overnight. Continue to monitor pt. No futher needs at this time.
[2020-05-04 05:33] VITALS: BP 124/79
[2020-05-04 05:39] LABS: CREATININE 0.8 mg/dL (0.7-1.3); MAGNESIUM 2.2 mg/dL (1.8-2.4); POTASSIUM 3.6 mmol/L (3.5-5.1)
[2020-05-04 07:35] VITALS: BP 130/79
--- NOTE | 2020-05-04 07:55 | NUR ---
Followup: chart reviewed and note likely transition to hospice care. Defer further nutrition reassessment unless consulted
[2020-05-04 11:20] VITALS: BP 108/74
[2020-05-04 15:15] VITALS: BP 100/65
--- NOTE | 2020-05-04 16:40 | NUR ---
Dr Burnham consulted and evaled patient. Agrees comfort care but not appropriate for hospice house. family does not want skilled care. Sp with Hospice house and questioned residential care rate which is $300 a day. they eval daily once patient met inpatient house criteria they begin to bill medicare. Dr Burnham sp with Helene [phone] the granddtr. he reviewed care and medications. he reports he will sp with phys at [facility] and review criteria. SP with and granddtr today and updated poc.
--- NOTE | 2020-05-04 18:03 | NUR ---
RECEIVED PT'S CARE AROUND 0730; PT. ON BED; RESTING WITH EYES CLOSED; EQUAL CHEST RISING NOTICED; AFLUT ON THE MONITOR; DURING AM ASSESSMENT PT. ALERT TO PERSON; CONFUSED & FORGETFUL; AM MEDICATIONS GIVEN WITH APPLED SAUCE; DURING BREAKFAST NOTICED PT. COUGHING AFTER HAVING SOME BITES; ST CONTACTED & NOTIFIED; DIET CHANGED BY ST; DURING ASSESSMENT NOTICED COARSE & CRACKLES SOUNDS; PHYSICIAN NOTIFIED DURING ROUNDINGS; ONE TIME IV LASIX GIVEN; POOR APPETITE THROUGH THE DAY; INSULING HOLD; BS ON THE 200s; CHECK CHARTING; PT. ON HIGH DOSE SCALE; PHYSICIAN NOTIFIED; ORDERS RECEIVED; LOW DOSE INSULIN; 4 UNITS GIVEN; MONITORING; AFLUT ON THE MONITOR; TURNED FROM SIDE TO SIDE THROUGH THE DAY; ASSESSMENT CHARGED; FOLLOWING POC; WILL PASS ON REPORT;
[2020-05-04 20:07] VITALS: BP 113/59
[2020-05-05 05:26] VITALS: BP 119/66
[2020-05-05 07:30] VITALS: BP 115/68
--- NOTE | 2020-05-05 09:35 | NUR ---
WOUND CARE F/U; ASSESSED BUTTOCKS/SACRAL AREA W/ MICROFILM PROCESSOR LETICIA, PT COOPERATIVE, ALERT BUT CONFUSION PRESENT, BUTTOCKS AREA IMPROVING, HEALING, NO DRAINAGE, NO S/S INFECTION, LOW AIR LOSS PUMP REMAINS ON BED, INCONT STOOL RECOMMENDATIONS; CONT ZGUARD BID AND PRN, TURN Q 2HOURS MINIMAL, PRESSURE RELIEF, OFF LOADING, CONT LOW AIR LOSS PUMP TO BED MICROFILM PROCESSOR AWARE
--- NOTE | 2020-05-05 11:10 | NUR ---
PT DOWNGRADED TO MED/SURG STATUS. TOOK PILLS IN APPLESAUCE WITHOUT DIFFICULTY. REFUSED BREAKFAST, DID DRINK SOME THICKENED WATER
--- NOTE | 2020-05-05 11:25 | NUR ---
PT TO GO TO ROOM 461 REPORT GIVEN TO LISA MORRISON
[2020-05-05 11:32] VITALS: BP 127/68
--- NOTE | 2020-05-05 13:25 | NUR ---
Pt transferred from , [facility] at 1210pm; transferred to room safely. On MS, not on telemetry; no signs or complain of chest pain, crushing sensation and heaviness. On O2 at 4lpm via nasal cannula. Vital signs stable. On pureed diet- tolerating well; no nausea, no vomiting and no abdominal pain noted. On blood sugar monitoring-taken and recorded accordingly; with sliding scale insulin ordered- given as prescribed.
[2020-05-05 16:20] VITALS: BP 122/77
[2020-05-05 19:30] VITALS: BP 132/68
--- NOTE | 2020-05-06 04:28 | NUR ---
ASSUMED PT CARE AT SHIFT CHANGE. PT IS CONFUSED. PT RESPONDS WHEN HIS NAME IS CALLED BUT DOES NOT RESPOND TO QUESTIONS. CENTRAL LINE IS IN PT'S IJ - TRIPLE LUMEN. PERFORMED A COVID TEST AND SENT IT DOWN TO LAB. NASAL CANULA AT 2 LITERS. PT CONTINUES TO PULL OUT NC. PT HAS A NOE IN PLACE DARK YELLOW (ALMOST ZAFAR) PT HAS TO BE REDIRECTED TO KEEPING HIS CLOTHES ON. PT DOES TRY TO PUT HIS FEET UP ON THE RAILS ON THE SIDE OF THE BED BUT DOES NOT ATTEMPT TO GET UP. PT IS IN BED. DR. MCMANUS CALLED AND PUT IN A VERBAL ORDER FOR A COVID TEST SO PT COULD D/C. ALSO TO PUT THE PT ON FLUIDS SINCE HE DOES NOT HAVE ADEQUATE INPUT. WILL CONTINUE TO MONITOR.
[2020-05-06 07:14] VITALS: BP 136/55
--- NOTE | 2020-05-06 07:46 | NUR ---
Assumed patient care at 0715. Vital signs stable, Lung Sounds are coarse, ABD soft and non-tender, skin is clean, warm, dry and intact; he does not appear to be in any pain. Patient has Oxygen at 2 Liters per nc (he removes this often). Patient is non-verbal, he points with his finger and reaches out his hand for this nurse to hold. Patient is supposed to be going to [facility] after Covid test comes back negative.
[2020-05-06 15:10] VITALS: BP 130/80
[2020-05-06 20:05] VITALS: BP 92/55
--- NOTE | 2020-05-07 03:55 | NUR ---
patient is on comfort care. prn ativan and morphine given per order. patient is on 2l of oxygen no soa or distress noted this shift. patient turned q 2 hours. pericare and barrier cream applied as needed.patient in bed asleep at this time breathing regular and unlaboured.
[2020-05-07 07:27] VITALS: BP 111/83
--- NOTE | 2020-05-07 10:04 | NUR ---
WOUND CARE F/U ASSESSED BUTTOCKS/SACRAL AREA W/ STUDENT NURSES AND NSG INSTRUCTOR, AREA HEALING, NO NEW SKIN BREAKDOWN, NO OPEN AREAS, NO S/S INFECTION, INCONT STOOL, NOE IN PLACE, REMAINS ON LOW AIR LOSS PUMP TO BED, COMFORT CARE RECOMMENDATIONS; CONT POC, CONT LOW AIR LOSS PUMP TO BED, CONT COMFORT CARE, PRESSURE RELIEF, ZGUARD TO AREA BID AND PRN TECHNICAL IMPLEMENTATION LEAD AWARE
--- NOTE | 2020-05-07 16:35 | NUR ---
CM MET WIHT PT, SPOUSE, AND GDTR AT BEDSIDE. THEY WERE ACREEABLE WITH REFERRAL BEING SENT TO [facility] FOR REVIEW FOR POSSIBLE ADMISSION. PRIVATE [facility]Y LTC WITH HOSPICE SERVICES. CM CALLED AND SPOKE WITH CARIE SHE INDICATED PRIVATE ROOM 187 SEMI 172 SECURE 180. THEY USE [facility]. REFERRAL SENT TO THEM WELL. THEY ARE BOTH REVIEWING. [facility] P: F: [facility] P: F:
--- NOTE | 2020-05-07 18:51 | NUR ---
PCT did not do evening vital signs, agreed to do it; patient had fair appetite, finished 50% of lunch, 45% of dinner, 30% of breakfast, but needed to be encouraged.
[2020-05-07 19:59] VITALS: BP 129/64
--- NOTE | 2020-05-08 04:36 | NUR ---
ASSUMED CARE OF PT AT 1900. PT IS A/O X2 AND IS COMFORT CARE. PT C/O PAIN AND FREQUENTLY ASKS FOR TWO ASPIRINS. PRN PAIN MEDICATION GIVEN DIRECTED. PT IS IMPULSIVE AND TAKES OFF HIS NC OFTEN. FREQUENT ROUNDS COMPLETED TO ENSURE SAFETY AND THAT O2 IS REAPPLIED. BARRIER CREAM APPLIED. PT EXPERIENCING LOOSE STOOL A RESULT OF STOOL SOFTNER PROVIDED. HS BS REQUIRED NO SLIDING SCALE TO BE GIVEN. DRINKS AND MOUTH CARE OFFERED REGULARLY ON ROUNDS. NOE OUTPUT LOW NOTED IN I & O. ENCOURGED PT TO COUGH AND DEEP BREATHE FREQUENTLY. SOME DYSPNEA NOTED. PRN PROVIDED DIRECTED. FALL PRECAUTIONS ARE IN PLACE, CALL LIGHT IS WITHIN REACH. WILL CONTINUE TO MONITOR.
[2020-05-08 07:28] VITALS: BP 146/72
[2020-05-08 11:45] VITALS: BP 184/72
--- NOTE | 2020-05-08 15:03 | NUR ---
Assumed care of pt. at 0700. Pt. was calm and cooperative and seemed to be AOx3. Pt. received a full bed change and cleaning which revealed a small semi-solid stool. No complaints of pain. Fall precautions in place.
[2020-05-08 15:50] VITALS: BP 150/80
[2020-05-08 19:55] VITALS: BP 137/64
--- NOTE | 2020-05-09 02:15 | NUR ---
ASSUMED CARE AT 1900. PT IS A/O X2 AND ON COMFORT CARE. DISPLAYS SIGNS OF DYSPNEA AND GENERALIZED PAIN. PRN PAIN MEDICATION GIVEN DIRECTED. VSS. NON-PRODUCTIVE COUGH. ZGUARD APPLIED TO BUTTOCKS. IN ROOM NEAR NURSES STATION. NC AT [address] MIDLINE IS IN PLACE AND WORKING PROPERLY. INCONT OF STOOL. FALL PRECAUTIONS ARE IN PLACE. CALL LIGHT IS WITHIN REACH. WILL CONTINUE TO MONITOR.
--- NOTE | 2020-05-09 13:28 | NUR ---
Assumed care of patient at 0700. Patient calm and cooperative. No stated pain. Continues to ask about where his is. Continues to have adequate appetite. Fall precautions in place.
[2020-05-09 15:54] VITALS: BP 132/98
[2020-05-09 20:14] VITALS: BP 125/62
--- NOTE | 2020-05-10 03:03 | NUR ---
patient aox1 forgetful and confused. care assumed at 1900 patient had high anxiety prn ativan given per order. patient incontinent pericare and barrier cream applied as needed. cath care done. patient encouraged fluids. fall precaution in place. patient in bed asleep at this time breathing regular and unlaboured.
--- NOTE | 2020-05-10 08:34 | NUR ---
Assumed patient care at 0715. Vital signs stable, LSCTA, ABD soft and non-tender, BS x's 4; he does not appear to be in any pain and/or distress. Patient presents this am as delerious. He is unable to answer any questions, speech is unclear. Patient continues on Oyxgen at 3 Liters per nc, continues to remove this several times during shift.
--- NOTE | 2020-05-10 10:39 | NUR ---
WOUND CARE F/U ASSESSED SACRAL/BUTTOCK AREA W/ FAN RUNNER EZEQUIEL AND STUDENT NURSE, AREA HEALED, INCONT SMALL AMT STOOL, CLEANSED AND ZGUARD REAPPLIED, PT COOPERATIVE BUT CONFUSED, LOW AIR LOSS PUMP ON BED RECOMMENDATIONS; CONT POC OF ZGUARD BID AND PRN, TURN Q 2HOURS MINIMAL, OFF LOADING, PRESSURE RELIEF, CONT LOW AIR LOSS PUMP TO BED FAN RUNNER AWARE
--- NOTE | 2020-05-10 14:49 | NUR ---
CM CALLED [facility] THIS AM AND LEFT A VM. STILL NO RESPONSE. CM REFAXED REFERRAL. CARIE FROM [facility] CAME AND DID A BEDSIDE EVAL. SHE INDICATED THAT SHE WOULD BE REVIEWING PT WITH HER TEAM AND FOLLOWING UP WITH CM AND PT'S FAMILY RELATED TO INITIAL 5 DAY RESPITE STAY VS SERVICES IN THE HOME WITH HOSPICE. SPOUSE VERY CONCERNED WITH FINANCES. CM TO FOLLOW INDICATED WITH DC PLANNING.
--- NOTE | 2020-05-10 15:13 | HC ---
[facility] [place] [address] CONSULTATION Name: ROSALES ENRIQUEZ Room #: 461- ADM IN M.R.#: [id number] Admission: 04/16/20 Attend Phys: Joseluis Riggs Discharge: Date of : 49 Report #: [id number] THIS REPORT FOR: cc: JENNY - No family physician/PCP JENNY - No family physician/PCP Shady Becerril MD ~ CC: JENNY physician/PCP Joseluis Riggs DATE OF SERVICE: 04/28/2020 HISTORY OF PRESENT ILLNESS: The patient is a 75-year-old white male admitted through [facility] to [facility] with chest pain while he was standing his back. He reported to have a non-ST elevation DC. During the cardiac catheterization, he became combative, was intubated on 04/17/2020. He remained intubated through 04/25/2020. He was able to gradually be weaned off pressors and he moved out of ICU. He has a toxic metabolic encephalopathy with significant mental status changes. CT of the head was obtained, which was negative. He is noted to have anterolateral and septal wall hypokinesis. He also has very weak and likely has a critical illness myopathy along with generalized debilitation. We are seeing him in Rehabilitation Medicine consultation. PAST MEDICAL HISTORY: Includes COPD, chronic tobacco abuse, hypertension, diabetes mellitus type 2, neuropathy. He has had a past history of meningeal encephalitis. PAST SURGICAL HISTORY: Includes septoplasty and cholecystectomy. HABITS: One-half pack per day for [id number] history. ETOH 2-3 per week. SOCIAL HISTORY: Lives with his in [facility], 2 steps. Used a cane when his back was bothering him. is retired. ALLERGIES: AMOXICILLIN AND VARENICLINE FROM CHANTIX. REVIEW OF SYSTEMS: Somewhat limited by his mental status. No current complaints of chest pain, shortness of breath or abdominal discomfort. PHYSICAL EXAMINATION: GENERAL: A 75-year-old white male, in no obvious distress. He is on 3.5 liters of nasal prong O2. He was incorrect regarding the place, thinking he was in [place]. He thought the year was 187. He thought he was in a bar. He otherwise was alert. He will follow basic 1-step commands, although there is a definite latency. HEENT: Facies appeared symmetric. [facility] [address] [place] [address] CONSULTATION Name: ROSALES ENRIQUEZ Room #: 461-P ADM IN M.R.#: [id number] Admission: 04/16/20 Attend Phys: Joseluis Riggs Discharge: Date of : 49 Report #: [id number] EXTREMITIES: Upper extremities: Functional range of motion, strength is probably a grade 3-3+/5. Lower extremities: Functional range of motion, strength is probably a grade 3/5-3+. Tone was symmetric, decreased. DTRs unable to assess sensation. He does have some distal edema upper and lower extremities. Functionally, he is max assist sit to supine. He has decreased sitting balance with a lean to the right. Max assist, trying to come to stand. He is on a mechanical soft with thin liquid diet. ASSESSMENT: A 75-year-old male with the following problem list: 1. Toxic metabolic encephalopathy. 2. Likely critical illness myopathy. 3. Medical complexity with generalized debilitation. 4. Significant functional mobility and activities of daily living deficits. 5. Decreased cognition. 6. Non-ST elevation myocardial infarction. 7. Acute respiratory failure with prolonged mechanical ventilation. 8. Anterolateral and septal wall hypokinesis. 9. Ischemic cardiomyopathy. 10. Paroxysmal atrial fibrillation. 11. Chronic obstructive pulmonary disease. 12. Diabetes mellitus type 2. 13. Premorbid neuropathy. 14. Premorbid memory problems, which the noted, especially short-term memory. 15. Prior history of low back problems for which he utilized a cane. PLAN: The patient meets diagnostic criteria for an acute in-hospital inpatient rehabilitation. He does have decreased endurance and we will check with the therapy team as far as tolerance levels. We are considering him for an acute [address] [place] [address] inpatient rehabilitation stay. Discussion with the patient's . She would desire for updates at least daily if he does come up to the rehab steiner as she needs to return back to [facility]. <ELECTRONICALLY SIGNED> By: Shady Becerril MD 05/10/20 1513 [id number] Shady Becerril MD /[facility]
[2020-05-10 16:22] VITALS: BP 125/62
--- NOTE | 2020-05-10 16:29 | NUR ---
DIEGO WITH [facility] DID BEDSIDE EVAL THIS AFTERNOON AND SPOKE WITH PT'S SPOUSE, SON, [place] GDTR. PLAN WAS DEVISED TO BRING PT HOME SUNDAY WITH HOSPICE SERVICES. CM NOTIFIED PHYSICAIN. DIEGO WITH [facility] STATED THEY WOULD LIKE TRANSPORT ARRANGED BETWEEN 10:00-11:00. PT'S SON WILL BE AT PT'S HOME TO ARRANGE EQUIPTMENT PRIOR TO DISCHARGE. CM TO SPEAK WITH FAMILY AND HOSPICE IN THE AM TO CONFIRM EQUIPTMENT DELIVERY. OUTSIDE HOSPITAL DNR PLACED IN WALL COLDFUSION PHYSICAIN NOTIFIED.
[2020-05-10 19:20] VITALS: BP 132/65
[2020-05-10 20:04] VITALS: BP 132/65
[2020-05-10 20:19] VITALS: BP 141/66
[2020-05-10 20:20] VITALS: BP 141/66
--- NOTE | 2020-05-10 20:45 | NUR ---
Assistant Head Cashier went to pt room at shift change to introduce self at 1920, observed pt lying on the floor bed alarm not on, on a MARIALUISA. Pt was talking to self then, neuro checks WNL,able to move all extremities, and denied hitting his head or pain anywhere. Assisted pt back to bed assist of /. Pt incontinent of BM cleaned up and made comfortable in bed. Bed alarm turned on. Day nurse notified family and Dr as well as seed production field supervisor. Will continue to monitor pt.
[2020-05-10 22:37] VITALS: BP 129/82
[2020-05-11 07:30] VITALS: BP 137/91
--- NOTE | 2020-05-11 10:04 | NUR ---
Central line out, patient tolerates well. on 3 L nasal cannual. weak, signs of soa sometimes. talking to the staff, not clearly.
--- NOTE | 2020-05-11 11:05 | NUR ---
patient resting at 1100. Patient has productive cough but exerting minimal cough effort. he is talking to staff requently but is difficult to understand. He repeatedly states he wants to see his and dog at home and wants us to give him minimal care. resting comfortably with no desire to eat or drink at this time. no pain, and only oriented to person. vitals stable, 2L o2 via nasal cannula.
--- NOTE | 2020-05-11 11:40 | NUR ---
PT DISCHARGING TODAY TO HOME WITH [facility] FAXED DC ORDERS/SUMMARY SPOKE WITH INTAKE THEY RECEIVED ORDERS.
--- NOTE | 2020-05-11 11:43 | NUR ---
I have reviewed the student's documentation.
--- NOTE | 2020-05-11 11:46 | NUR ---
PT IS TO DC HOME ONTO [facility] THIS DAY. CM HAD SET UP [facility] TRANSPORT FOR 11:30AM MANAGER MANAGED BACKUP SERVICES THIS DAY HAVING BEEN INFORMED TAHT EQUIPTMENT WOULD BE DELIVERED AROUND 10 BUT CM CALLED SPOUSE SAID THAT DELIVERY OF EQUIPEMENT FROM [facility] WOULD BE ARIVING AROUND 12:00 NOW. CM CALLED AND BUMPED TRANPORT BACK TO 1300 TO ENSURE EQUIPMENT IS DELIVERED AND ASSEMBLED. CM CALLED AND LET DIEGO WITH [facility] AND SPOUSE KNOW MANAGER MANAGED BACKUP SERVICES FROM [facility] AROUND 1300. [facility] FORM AND OUTSIDE HOSPITAL DNR FORM COMPLETED. NO OTHER CM INTERVENTION INDICATED. CASE CLOSED.
--- NOTE | 2020-05-11 13:49 | NUR ---
Alert, calm and pleasant. slur speech. had a few bites for lunch, voiced that he didnot like the food. transportation arrived at 1:45pm.
== END 2020-05-11 13:52 | disposition hospice, home (50) | DRG 853 ==
LOC: 2N 18:10 → ICU 20:02 → 2N 20:02 → ICU 04-17 09:45 → 2N 04-26 12:24 → 4W 05-05 12:36
PROVIDERS: Internal Medicine; Internal Medicine Cardiovascular Disease; Internal Medicine Pulmonary Disease; Nurse Practitioner; Nurse Practitioner Family; Pediatrics; Psychiatry & Neurology Psychiatry; ADMIT Hospitalist; ATTEND Hospitalist
PROC: B2111ZZ Fluoroscopy of Multiple Coronary Arteries using Low Osmolar Contrast (ICD-10-PCS; principal; 2020-04-17)
PROC: 02HV33Z Insertion of Infusion Device into Superior Vena Cava, Percutaneous Approach (ICD-10-PCS; principal; 2020-04-17)
PROC: 5A1955Z Respiratory Ventilation, Greater than 96 Consecutive Hours (ICD-10-PCS; principal; 2020-04-17)
PROC: 027034Z Dilation of Coronary Artery, One Artery with Drug-eluting Intraluminal Device, Percutaneous Approach (ICD-10-PCS; principal; 2020-04-17)
PROC: 4A023N7 Measurement of Cardiac Sampling and Pressure, Left Heart, Percutaneous Approach (ICD-10-PCS; principal; 2020-04-17)
PROC: 0BH18EZ Insertion of Endotracheal Airway into Trachea, Via Natural or Artificial Opening Endoscopic (ICD-10-PCS; principal; 2020-04-17)
DX: A41.9 Sepsis, unspecified organism (principal); I21.4 Non-ST elevation (NSTEMI) myocardial infarction; R57.0 Cardiogenic shock; G92 Toxic encephalopathy; I50.23 Acute on chronic systolic (congestive) heart failure; J96.21 Acute and chronic respiratory failure with hypoxia; J15.1 Pneumonia due to Pseudomonas; E87.1 Hypo-osmolality and hyponatremia; E87.0 Hyperosmolality and hypernatremia; J81.1 Chronic pulmonary edema; I48.92 Unspecified atrial flutter; D68.59 Other primary thrombophilia; R65.10 Systemic inflammatory response syndrome (SIRS) of non-infectious origin without acute organ dysfunction; I11.0 Hypertensive heart disease with heart failure; E11.42 Type 2 diabetes mellitus with diabetic polyneuropathy; M19.90 Unspecified osteoarthritis, unspecified site; F17.210 Nicotine dependence, cigarettes, uncomplicated; G72.9 Myopathy, unspecified; I25.5 Ischemic cardiomyopathy; I48.0 Paroxysmal atrial fibrillation; I25.10 Atherosclerotic heart disease of native coronary artery without angina pectoris; R41.0 Disorientation, unspecified; J44.9 Chronic obstructive pulmonary disease, unspecified; E78.5 Hyperlipidemia, unspecified; E66.9 Obesity, unspecified; N20.0 Calculus of kidney; E11.65 Type 2 diabetes mellitus with hyperglycemia; E83.42 Hypomagnesemia; I95.9 Hypotension, unspecified; F41.9 Anxiety disorder, unspecified; I08.1 Rheumatic disorders of both mitral and tricuspid valves; F10.10 Alcohol abuse, uncomplicated; Y90.9 Presence of alcohol in blood, level not specified; Z66 Do not resuscitate; Z20.828 Contact with and (suspected) exposure to other viral communicable diseases; Z88.1 Allergy status to other antibiotic agents; Z88.8 Allergy status to other drugs, medicaments and biological substances; Z90.49 Acquired absence of other specified parts of digestive tract; Z68.29 Body mass index [BMI] 29.0-29.9, adult
CPT/HCPCS: 10040; 10045; 10078; 10081; 10204; 10797